=== PATIENT | male | born 1945 | race Caucasian/White ===

== ENCOUNTER 2016-11-28 22:17 | Observation (INO) ==
--- NOTE | 2016-11-28 22:30 | Emergency Department Note ---
Disposition Clinical Impression: Elevated troponin Chest pain Qualifiers: Chest pain type: unspecified Qualified Code(s): R07.9 - Chest pain, unspecified Disposition: Admitted As Inpatient Condition: Good Chest Pain HPI - General Chief Complaint: ED Chest Pain Stated Complaint: chest pain Time Seen by Provider: 11/28/16 22:28 Source: patient Mode of arrival: private vehicle Limitations: no limitations Vital Signs Reviewed: Yes Nursing Notes Reviewed: Yes - History of Present Illness HPI Narrative: Patient presents to the ED with report of 2 episodes of chest and back pain over the past 2 days. States that he was having what he thought was heartburn symptoms 1 week ago and saw his PCP. He was told to stop his aspirin and start taking omeprazole which he has been doing. 2 days ago he had an episode of midsternal discomfort that he describes as a pressure and throbbing sensation that was 6-7 out of 10 when it occurred. It lasted 10-15 minutes and resolved without any intervention. Yesterday evening he had aching pain between his shoulder blades that he describes as feeling like he had overdone it while exercising although he had done nothing strenuous. He rated this discomfort 7- 8 out of 10 and states it lasted approximately half an hour prior to going to bed. When he woke up the pain was gone. Today he split two truck loads of wood during the day. Later this evening around 8 PM he states he felt very hot and sweaty and had some nausea. This also went away on its own. There was no associated chest pain or shortness of breath at the time. His states she had messaged his PCP today about his symptoms over the past 2 days and was advised he should go to the ED if he develops any new symptoms. She convinced him to come to the ED this evening because of his sensation of being hot and sweaty earlier this evening. He currently has no symptoms, including chest pain , shortness of breath, nausea or diaphoresis. He has a history of hypertension and takes lisinopril. He has never had any heart problems and has never had a stress trest. He did not take his omeprazole today because he thought it might have been related to his symptoms. Severity scale (1-10): 3 - Related Data Home Medications Medication Instructions Recorded Confirmed Aspirin 81 mg PO DAILY 09/28/15 11/28/16 Calcium Carbonate/Vitamin D3 1 tab PO DAILY 09/28/15 11/28/16 [Calcium 500-Vit D3 400 Tablet] Gluc HCl/Csa/Collagen/Hyalur A 1 tab PO DAILY 09/28/15 11/28/16 [Glucosamine Chondroitin Cap] Lisinopril [Zestril] 20 mg PO DAILY 09/28/15 11/28/16 Multivitamin with Minerals/Lut 1 tab PO DAILY 09/28/15 11/28/16 [Pub Multivitamin 50 Plus Tab] Omeprazole 20 mg PO DAILY 11/28/16 11/28/16 Allergies Allergy/AdvReac Type Severity Reaction Status Date / Time bacitracin AdvReac Rash Verified 08/19/16 13:02 [From Neosporin ([id number])] Neomycin AdvReac Rash Verified 08/19/16 13:02 [From Neosporin ([id number])] polymyxin B AdvReac Rash Verified 08/19/16 13:02 [From Neosporin ([id number])] Constitutional: Denies: fever, chills, weakness, weight change Eyes: Denies: eye pain, eye discharge, vision change ENT ED: Denies: ear pain, throat pain, dental pain, hearing loss, epistaxis, congestion, dysphagia Cardiovascular: Reports: as per HPI, chest pain. Denies: palpitations, dyspnea on exertion, edema, syncope Respiratory: Denies: cough, dyspnea, wheezes, hemoptysis, stridor Gastrointestinal: Denies: abdominal pain, nausea, vomiting, diarrhea, constipation, hematemesis, melena, hematochezia Genitourinary: Denies: urgency, dysuria, frequency, hematuria Musculoskeletal: Reports: as per HPI Integumentary: Denies: rash, abrasion, lesions Neurological: Denies: headache, weakness, numbness, paresthesias, confusion, abnormal gait, vertigo Psychiatric: Denies: anxiety, depression, suicidal thoughts, homicidal thoughts , auditory hallucinations, visual hallucinations Endocrine: Denies: fatigue Hematological/Lymphatic: Denies: easy bleeding, easy bruising Allergic/Immunologic: Denies: facial swelling, urticaria Chest Pain PMH - Past Medical History Medical history: Reports: cancer, hypertension, other Surgical history: Reports: cataract, knee replacement, orthopedic, other Psychiatric history: Reports: no psych history - Social History Smoking Status: Former smoker Alcohol use: Reports: heavy, recent Drug use: Reports: none Physical Exam - General Limitations: no limitations General appearance: alert, in no apparent distress - Head Head exam: atraumatic, normocephalic, normal inspection - Eye Eye exam: Present: normal appearance, PERRL, EOMI - ENT ENT exam: normal exam, normal oropharynx, mucous membranes moist - Neck Neck exam: Present: normal inspection, full ROM, trachea midline - Chest Chest inspection: Present: normal inspection, symmetric chest wall rise. Absent : tenderness - Respiratory Respiratory exam: Present: normal lung sounds bilaterally. Absent: respiratory distress - Cardiovascular Cardiovascular exam: Present: regular rate, normal rhythm, normal heart sounds - Abdominal Exam Abdominal exam: Present: soft, Non-Tender. Absent: tenderness, distention, guarding, rebound, rigidity - Extremities Exam Extremities exam: Present: normal inspection, full ROM. Absent: tenderness, pedal edema - Back Exam Back exam: Present: normal inspection, full ROM. Absent: tenderness - Neurological Exam Neurological exam: Present: alert, oriented X3 - Psychiatric Psychiatric exam: Present: normal affect, normal mood - Skin Skin exam: Present: warm, dry, intact, normal color. Absent: diaphoresis, pallor Course Course Narrative: Patient presents to the ED after brief episode of feeling hot and sweaty earlier this eveningpreceded by episodes of midsternal chest pain and pain between his shoulder blades over the past 2 days. He is currently asymptomatic but symptoms are concerning for possible underlying ischemic cardiac pathology so EKG was obtained on arrival. This showed a sinus rhythm with no acute ischemic changes. Labs and x-ray will be obtained for further evaluation and he will continue to be monitored. I have low suspicion for any respiratory pathology, PE or aortic dissection. - Reevaluation(s) Reevaluation #1: Patient remains asymptomatic. Laboratory studies are normal except for his troponin which is slightly positive at 0.04. Discussed with patient the need to repeat a troponin to evaluate any change as this could indicate a recent or ongoing event with his heart. Patient is amenable to staying for repeat testing. Final disposition will be based on repeat troponin level. Time: 23:45 Reevaluation #2: Patient remains asymptomatic and pain-free. Repeat EKG is overall unchanged. He has had an occasional PVC on telemetry but no other acute events. Repeat troponin however is up trending to 0.05. Discussed with patient and the need for transfer for further evaluation by cardiology. Patient prefers [facility]. I have paged the hospitalist stone chimney mason, Dr. Miles and am awaiting call back at this time. Patient will be given 325 mg of aspirin. Time: 01:25 Reevaluation #3: I spoke to the hospitalist stone chimney mason, Dr. Miles who did not feel that the patient required transfer at this time as the change in troponin was insignificant coupled with the fact that his EKG was unchanged and he was asymptomatic. He recommended admission here for continued troponin trending and risk factor identification and modification. I then spoke to the hospitalist stone chimney mason here, Dr. Almodovar, who agreed to accept the patient for further monitoring overnight. Patient was updated on plan of care and is in agreement. Time: 01:53 Vital Signs Temperature 99.0 F 11/28/16 22:18 Pulse Rate 84 11/28/16 22:18 Respiratory Rate 20 11/28/16 22:18 Blood Pressure 153/95 11/28/16 22:18 O2 Sat by Pulse Oximetry 98 11/28/16 22:18 Temperature 99.0 F 11/28/16 23:45 Pulse Rate 77 11/29/16 01:43 Respiratory Rate 16 11/29/16 01:43 Blood Pressure 164/95 11/29/16 01:43 O2 Sat by Pulse Oximetry 98 11/29/16 01:43 Oxygen Delivery Oxygen Delivery Room Air Chest Pain - Differential Diagnosis Likely: stable angina, atypical chest pain, chest pain - Medical Records Medical records reviewed: Yes I reviewed the patient's medical records. - Lab Data Lab results reviewed: Yes I reviewed the patient's lab results. Result diagrams: 11/28/16 22:30 11/28/16 22:30 Lab Results 11/28/16 11/28/16 11/28/16 Range/Units 22:30 22:30 22:30 WBC 8.5 (4.3-11.1) K/mcL RBC 4.16 L (4.19-5.50) M/mcL Hgb 13.3 (12.9-16.9) g/dL Hct 39.0 (37.5-50.1) % MCV 93.8 (83.0-100.0) fL MCH 32.0 (28.0-33.3) pg MCHC 34.1 (31.6-35.5) g/dL RDW 13.2 (11.5-14.5) % Plt Count 260 (140-400) K/mcL MPV 9.3 L (9.4-12.4) fL Immature Gran % 0.5 (0-4) % Seg Neutrophils % 61.8 % Lymphocytes % 22.8 % Monocytes % 11.4 % Eosinophils % 3.1 % Basophils % 0.4 % Neutrophils # 5.3 (1.6-8.9) K/mcL Lymphocytes # 1.9 (0.6-4.6) K/mcL Monocytes # 1.0 (0.0-1.3) K/mcL Eosinophils # 0.3 (0.0-0.6) K/mcL Basophils # 0.0 (0.0-0.2) K/mcL Sodium 141 (136-145) mEq/L Potassium 3.9 (3.5-4.5) mEq/L Chloride 108 (98-109) mEq/L Carbon Dioxide 20 (19-29) mEq/L BUN 18 (8-26) mg/dL Creatinine 1.15 (0.72-1.25) mg/dL Est GFR ( Amer) > 60 (> 60) Est GFR (Non-Af Amer) > 60 (> 60) BUN/Creatinine Ratio 16 (6-26) Glucose 79 (70-99) mg/dL Calculated Osmolality 293 (280-300) Calcium 9.0 (8.6-10.8) mg/dL Troponin I 0.04 H* (0-0.03) ng/mL B-Natriuretic Peptide (0-100) pg/mL 11/28/16 11/29/16 Range/Units 22:30 00:45 WBC (4.3-11.1) K/mcL RBC (4.19-5.50) M/mcL Hgb (12.9-16.9) g/dL Hct (37.5-50.1) % MCV (83.0-100.0) fL MCH (28.0-33.3) pg MCHC (31.6-35.5) g/dL RDW (11.5-14.5) % Plt Count (140-400) K/mcL MPV (9.4-12.4) fL Immature Gran % (0-4) % Seg Neutrophils % % Lymphocytes % % Monocytes % % Eosinophils % % Basophils % % Neutrophils # (1.6-8.9) K/mcL Lymphocytes # (0.6-4.6) K/mcL Monocytes # (0.0-1.3) K/mcL Eosinophils # (0.0-0.6) K/mcL Basophils # (0.0-0.2) K/mcL Sodium (136-145) mEq/L Potassium (3.5-4.5) mEq/L Chloride (98-109) mEq/L Carbon Dioxide (19-29) mEq/L BUN (8-26) mg/dL Creatinine (0.72-1.25) mg/dL Est GFR ( Amer) (> 60) Est GFR (Non-Af Amer) (> 60) BUN/Creatinine Ratio (6-26) Glucose (70-99) mg/dL Calculated Osmolality (280-300) Calcium (8.6-10.8) mg/dL Troponin I 0.05 H* (0-0.03) ng/mL B-Natriuretic Peptide 62 (0-100) pg/mL - Radiology Data Radiology results reviewed: Yes I reviewed the patient's radiology results. ITS Impressions Chest X-Ray 11/28/16 22:46 IMPRESSION: No evidence acute disease. D/ / Sukhdeep Daley MD / Sukhdeep Daley MD Interpreting Provider: Sukhdeep Daley MD - EKG Data EKG attestation: Yes I reviewed and interpreted this EKG. EKG shows normal: sinus rhythm Rate: normal Rhythm: NSR When compared to previous EKG there are: previous EKG unavailable Interpretation: no acute changes, nonspecific ST-T wave changes - Core Measures Measure Exclusions: not indicated
[2016-11-28 22:52] LABS: Basophils % 0.4 %; Eosinophils # 0.3 K/mcL (0.0-0.6); Eosinophils % 3.1 %; Hemoglobin 13.3 g/dL (12.9-16.9); Immature Granulocytes % 0.5 % (0-4); Lymphocytes # 1.9 K/mcL (0.6-4.6); Lymphocytes % 22.8 %; Mean Corpuscular HGB Conc 34.1 g/dL (31.6-35.5); Mean Corpuscular Volume 93.8 fL (83.0-100.0); Mean Platelet Volume 9.3 fL (9.4-12.4); Monocytes % 11.4 %; Neutrophils # 5.3 K/mcL (1.6-8.9); Platelet Count 260 K/mcL (140-400); Red Blood Count 4.16 M/mcL (4.19-5.50); Red Cell Distribution Width 13.2 % (11.5-14.5); Segmented Neutrophils % 61.8 %
[2016-11-28 23:08] LABS: BUN/Creatinine Ratio 16 (6-26); Blood Urea Nitrogen 18 mg/dL (8-26); Carbon Dioxide 20 mEq/L (19-29); Chloride 108 mEq/L (98-109); Glucose 79 mg/dL (70-99); Osmolality,Calculated 293 (280-300); Potassium 3.9 mEq/L (3.5-4.5); Sodium 141 mEq/L (136-145); eGFR For African Americans > 60 (> 60); eGFR For Non-African Americans > 60 (> 60)
[2016-11-29] MEDS ORDERED: Aspirin 81 MG TAB.CHEW PO STA (01:19)
[2016-11-29] MEDS ORDERED: Naloxone 0.4 MG/ML INJ IVP PRN ×2 (02:14→02:31)
[2016-11-29 07:11] LABS: Basophils % 0.4 %; Eosinophils # 0.2 K/mcL (0.0-0.6); Eosinophils % 3.4 %; Hematocrit 39.7 % (37.5-50.1); Hemoglobin 13.5 g/dL (12.9-16.9); Immature Granulocytes % 0.4 % (0-4); Lymphocytes # 1.7 K/mcL (0.6-4.6); Lymphocytes % 23.9 %; Mean Corpuscular Hemoglobin 32.2 pg (28.0-33.3); Mean Corpuscular Volume 94.7 fL (83.0-100.0); Mean Platelet Volume 9.3 fL (9.4-12.4); Monocytes # 0.7 K/mcL (0.0-1.3); Monocytes % 10.5 %; Neutrophils # 4.3 K/mcL (1.6-8.9); Platelet Count 246 K/mcL (140-400); Red Blood Count 4.19 M/mcL (4.19-5.50); Red Cell Distribution Width 13.2 % (11.5-14.5); Segmented Neutrophils % 61.4 %
[2016-11-29 08:08] LABS: BUN/Creatinine Ratio 16 (6-26); Blood Urea Nitrogen 16 mg/dL (8-26); Carbon Dioxide 24 mEq/L (19-29); Chloride 109 mEq/L (98-109); Chol/HDL Ratio 3.3 (0-4.9); Cholesterol 164 mg/dL (< 200); Glucose 93 mg/dL (70-99); HDL Cholesterol 50 mg/dL (40-59); LDL Cholesterol,Calculated 101 mg/dL (0-99); Osmolality,Calculated 291 (280-300); Potassium 4.6 mEq/L (3.5-4.5); Sodium 140 mEq/L (136-145); Triglycerides 65 mg/dL (< 150); eGFR For African Americans > 60 (> 60); eGFR For Non-African Americans > 60 (> 60)
[2016-11-29] MEDS ORDERED: Multivit/Ca/Min/Fe/FA 1 TAB TABLET PO SCH (09:00)
[2016-11-29] MEDS ORDERED: Aspirin 81 MG TAB.CHEW PO SCH (09:00)
[2016-11-29] MEDS ORDERED: Lisinopril 20 MG TABLET PO SCH (09:00)
--- NOTE | 2016-11-29 09:57 | Electrocardiograph Report ---
[facility] Test Date: 2016-11-28 Pat Name: Bubba Busch Department: [id number] Room: [facility] Gender: M Industrial Trainer: David : 1945 Requested By: Danielle Silver Order Number: [id number] Reading MD: Chinyere Arndt Measurements Intervals [place] Rate: 80 P: 40 IA: 200 QRS: 8 QRSD: 86 T: 39 QT: 351 QTc: 387 Interpretive Statements SINUS RHYTHM MINIMAL ST DEPRESSION Electronically Signed On 11-29-16 09:56:44 EST by Chinyere Arndt
--- NOTE | 2016-11-29 09:58 | Electrocardiograph Report ---
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
--- NOTE | 2016-11-29 12:14 | Internal Med History&Physical ---
Date of Encounter: 11/29/16 Time of Encounter: 11:15 Assessment and Plan (1) Chest pain Current visit: Yes Status: Acute Repeat cardiac enzymes have been ordered through emergency room. Referral to cardiology will be made if there is increase in troponin. Qualifiers: Chest pain type: unspecified Qualified Code(s): R07.9 - Chest pain, unspecified (2) HTN (hypertension) Current visit: No Status: Chronic Continue lisinopril and monitor blood pressure. Qualifiers: Hypertension type: essential hypertension Qualified Code(s): I10 - Essential (primary) hypertension Internal Medicine - H&P: HPI Chief complaint: Chest discomfort Admitted From: Home Plans for Post Hospital Care: Home History of present illness: Mr. Busch is a 71 year old male who came to emergency room stating he had recurrent episode of discomfort in his chest/interscapular area over the preceding 3 days. He had an episode the evening of November at 10 while at leisure. It recurred again while at leisure the evening of November 27, more in the intrascapular area than in the anterior chest where it had been the previous day. He contacted his primary care provider office the morning of November 28 and was told to go to emergency room if the symptoms recurred. He did not feel well the evening of November 28 so came to [facility] ER. Contact was made with [facility] about transfer but the [facility] ER physician was told there were no beds available and the patient could be admitted to [facility] for monitoring. He was admitted to [facility] floor for ongoing care needs. His cardiovascular history significant for hypertension but he denies denies NH heart failure angina DVT or pulmonary embolus. He states he split and loaded firewood the afternoon of November 28 without any angina or anginal equivalents. He is not had a stress test or heart catheterization. He is pain-free at this time. Past Med Surg Social Fam HX - Past Medical History Medical history: cancer, hypertension, other Psychiatric history: no psych history - Past Surgical History Surgical History: cataract, knee replacement, orthopedic, other - Social History Smoking Status: Former smoker Smokeless Tobacco Status: No Alcohol use: heavy, recent Drug use: none - Family History Father Living Status: Hx Family Cardiac Disorders: Yes Hx Family Respiratory Disorders: No Hx Family Cancer: No Hx Family GI Disorders: No Hx Family Endocrine Disorder: No Hx Family Neuromuscular Disorders: No Hx Family Neurologic Disorders: No Hx Family HEENT Disorders: No Hx Family Autoimmune Disorders: No Internal Medicine - H&P: Meds Aspirin 81 mg PO DAILY 09/28/15 [History] Calcium Carbonate/Vitamin D3 [Calcium 500-Vit D3 400 Tablet] 1 tab PO DAILY 10/31 [History] Gluc HCl/Csa/Collagen/Hyalur A [Glucosamine Chondroitin Cap] 1 tab PO DAILY 10/31 [History] Lisinopril [Zestril] 20 mg PO DAILY 09/28/15 [History] Multivitamin with Minerals/Lut [Pub Multivitamin 50 Plus Tab] 1 tab PO DAILY 10/31 [History] Omeprazole 20 mg PO DAILY 11/28/16 [History] Allergies bacitracin [From Neosporin ([id number])] Adverse Reaction (Verified 08/19/16 13:02) Rash Neomycin [From Neosporin ([id number])] Adverse Reaction (Verified 08/19/16 13 :02) Rash polymyxin B [From Neosporin ([id number])] Adverse Reaction (Verified 13:02) Rash All Systems PM: A 10-system review of systems was performed and is negative for pertinent findings except as documented above in the HPI. Review of systems: Gen.: His weight is been stable past few months Cardiovascular: As per history of present illness Respiratory: He quit smoking at age 23 and has no known chronic lung disease GI: He denies disorders of his liver gallbladder or exocrine pancreas. He was found to have heme positive stools a few weeks ago. He was using aspirin at the time as he has used for many years. He was to see Dr. Blake today for consultation office visit to consider endoscopy. : He denies hematuria dysuria or kidney stones Neurologic: He denies large distribution strokes or seizures. Endocrine: Denies diabetes thyroid disease or hyperlipidemia Hematology/oncology: He was told a few months ago he was anemic. He denies internal malignancies. 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 He had left total knee replacement August 2016 and right carpal tunnel surgery September 2016. - Constitutional Vitals: Temp Pulse Resp BP Pulse Ox 97.8 F 67 18 159/86 96 11/29/16 11:12 11/29/16 10:50 11/29/16 11:12 11/29/16 11:12 11/29/16 11:12 Exam: Gen.: He is a well-developed well-nourished male who appears in no severe distress at present time. HEENT: Head is atraumatic and normocephalic. Eyes: EOMI. There is no scleral icterus. Mouth: Mucosa is moist. Neck: Supple and nontender. There is no thyromegaly or adenopathy noted. Heart: Regular without murmurs gallops or ectopics. Lungs: No wheezes or crackles are heard. Chest: There is no tenderness in the chest wall to palpation. Extremities: There is no cyanosis edema or clubbing noted. Dorsalis pedis and posterior tibial pulses are 1-2 over 2 bilaterally. 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 He has significant DJD changes of his hands. Neurologic: Mental status: He is talkative and a good historian. Cranial nerves : Smile is symmetric. Forehead wrinkles bilaterally. Tongue protrudes midline. EOMI. Motor: There is no pronator drift. Cerebellar: Finger to nose is intact bilaterally. Skin: Warm and dry Internal Med - H&P Results - Labs CBC & Chem 7: 11/29/16 06:50 11/29/16 06:50 Labs: Short CBC 11/29/16 Range/Units 06:50 WBC 7.1 (4.3-11.1) K/mcL Hgb 13.5 (12.9-16.9) g/dL Hct 39.7 (37.5-50.1) % Plt Count 246 (140-400) K/mcL Neutrophils # 4.3 (1.6-8.9) K/mcL BMP 11/29/16 06:50 Sodium 140 Potassium 4.6 H Chloride 109 Carbon Dioxide 24 BUN 16 Creatinine 0.97 Glucose 93 Calcium 9.0 Cardiac Enzymes 11/29/16 Range/Units 06:50 Troponin I 0.10 H* (0-0.03) ng/mL - VTE Reasons for not Prescribing Prophylaxis: Treatment not Indicated - Low risk for VTE
[2016-11-29] MEDS ORDERED: *HR* Heparin 5,000 UNIT/ML VIAL IVP ONE (13:06)
--- NOTE | 2016-11-29 13:12 | Discharge Summary ---
Date of Encounter: 11/29/16 Time of Encounter: 13:00 - Discharge Diagnosis (1) Chest pain Priority: Primary Status: Acute Qualifiers: Chest pain type: unspecified Qualified Code(s): R07.9 - Chest pain, unspecified (2) HTN (hypertension) Priority: Secondary Status: Chronic Qualifiers: Hypertension type: essential hypertension Qualified Code(s): I10 - Essential (primary) hypertension - Discharge Medications Home Medications: Aspirin 81 mg PO DAILY 09/28/15 [History] Calcium Carbonate/Vitamin D3 [Calcium 500-Vit D3 400 Tablet] 1 tab PO DAILY 10/31 [History] Gluc HCl/Csa/Collagen/Hyalur A [Glucosamine Chondroitin Cap] 1 tab PO DAILY 10/31 [History] Lisinopril [Zestril] 20 mg PO DAILY 09/28/15 [History] Multivitamin with Minerals/Lut [Pub Multivitamin 50 Plus Tab] 1 tab PO DAILY 10/31 [History] Omeprazole 20 mg PO DAILY 11/28/16 [History] Heparin 5,000 unit IVP ONCE vial 11/29/16 [Rx] Allergies/Adverse Reactions: Allergies bacitracin [From Neosporin ([id number])] Adverse Reaction (Verified 08/19/16 13:02) Rash Neomycin [From Neosporin (glk-jup-[id number])] Adverse Reaction (Verified 08/19/16 13 :02) Rash polymyxin B [From Neosporin (ilo-kes-[id number])] Adverse Reaction (Verified 13:02) Rash Date of admission: 11/29/16 02:02 Primary care physician: Xavi Zayas MD - Patient Status Disposition: Transfer Other Condition: Good - Discharge Instructions Follow Up With: Xavi Zayas MD [Primary Care Provider] - 1 week Hospital course: Mr. Busch is a 71 year old male who came to emergency room stating he had recurrent episode of discomfort in his chest/interscapular area over the preceding 3 days. He had an episode the evening of November at 10 while at leisure. It recurred again while at leisure the evening of November 27, more in the intrascapular area than in the anterior chest where it had been the previous day. He contacted his primary care provider office the morning of November 28 and was told to go to emergency room if the symptoms recurred. He did not feel well the evening of November 28 so came to [facility] ER. Contact was made with [facility] about transfer but the [facility] ER physician was told there were no beds available and the patient could be admitted to [facility] for monitoring. He was admitted to [facility] for ongoing care needs. Initial orders were written by the emergency room physician. I saw him the morning of November 29 and performed history and physical. Repeat troponin showed rise to 0.10. I spoke with patient about need to see patent clerk for further evaluation including possible heart catheter with intervention. He was agreeable to be transferred [facility]. I spoke with bed management and arrangements were made for him to be transferred to [facility] for further evaluation and treatment. The hospitalist there requested he be started on a heparin drip prior to discharge from [facility]. - Time Spent with Patient Total time spent providing and/or coordinating discharge services: - Constitutional Vitals: Temp Pulse Resp BP Pulse Ox 97.8 F 67 18 159/86 96 11/29/16 11:12 11/29/16 10:50 11/29/16 11:12 11/29/16 11:12 11/29/16 11:12 - VTE Reasons for not Prescribing Prophylaxis: Treatment not Indicated - Low risk for VTE
[2016-11-29 13:20] VITALS: BP 125/76
== END 2016-11-29 13:26 | disposition short-term general hospital (02) ==
LOC: INPPIK 22:17 → EMEROOPIK 22:17 → INPPIK 11-29 03:11
PROVIDERS: ADMIT Internal Medicine; ATTEND Internal Medicine